=== PATIENT | male | born 1940 | race Caucasian/White ===

== ENCOUNTER 2018-02-23 14:42 | Inpatient (IN) | payer MEDICARE ==
[~2018-02-23] VITALS: Ht 180.3 cm; Wt 84.9 kg
[2018-02-23] MEDS ORDERED: SODIUM CHLORIDE FLUSH 10ML SYR IVF ONE (15:30)
[2018-02-23 15:44] LABS: BASOPHILS # (AUTO) 0.03 x10^3/uL (0-0.1); BASOPHILS % (AUTO) 0 % (0-1); EOSINOPHILS # (AUTO) 0.38 x10^3/uL (0-0.4); EOSINOPHILS % (AUTO) 4 % (1-7); LYMPHOCYTES # (AUTO) 1.34 x10^3/uL (1-3.4); LYMPHOCYTES % (AUTO) 15 % (22-44); MD NO; MEAN CORPUSCULAR HEMOGLOBIN 32.7 pg (27.5-34.5); MEAN CORPUSCULAR VOLUME 96.2 fL (81-97); MEAN PLATELET VOLUME 7.6 fL (7.4-10.4); MONOCYTES # (AUTO) 0.58 x10^3/uL (0.2-0.8); MONOCYTES % (AUTO) 7 % (2-9); NEUTROPHILS # (AUTO) 6.41 x10^3/uL (1.8-6.8); NEUTROPHILS % (AUTO) 74 % (42-75); PLATELET COUNT 317 x10^3/uL (130-400); RED BLOOD COUNT 4.46 x10^6/uL (4.38-5.82); RED CELL DISTRIBUTION WIDTH 13.4 % (9.4-14.8)
[2018-02-23 15:53] LABS: ANION GAP 4 mmol/L (5-15); CALCIUM 8.9 mg/dL (8.5-10.1); CHLORIDE 108 mmol/L (98-107); CREATININE 1.15 mg/dL (0.7-1.3)
[2018-02-23 16:59] LABS: INTERNATIONAL NORMALIZED RATIO 2.14 (0.93-1.1)
[2018-02-23 17:04] LABS: ALANINE AMINOTRANSFERASE 22 U/L (12-78)
[2018-02-23 17:07] LABS: ALKALINE PHOSPHATASE 91 U/L (45-117); BILIRUBIN,TOTAL 0.5 mg/dL (0.2-1.0); TOTAL PROTEIN 8.2 g/dL (6.4-8.2)
[2018-02-23] MEDS ORDERED: OMNIPAQUE 350 MG/ML, 100ML BOTTLE ONE (17:57)
--- NOTE | 2018-02-23 19:15 | NUR ---
report from bo assumed care of pt
--- NOTE | 2018-02-23 19:34 | NUR ---
ADMITTING MD AT BEDSIDE AWAITING ADMIT
[2018-02-23] MEDS ORDERED: ONDANSETRON 2MG/ML, 2ML IVPush PRN (20:00)
[2018-02-23] MEDS ORDERED: BISACODYL 10 MG SUPP PR PRN (20:00)
[2018-02-23] MEDS ORDERED: SODIUM CHLORIDE FLUSH 10ML SYR IVF PRN (20:00)
[2018-02-23] MEDS ORDERED: ACETAMINOPHEN 325 MG TABLET PO PRN (20:00)
--- NOTE | 2018-02-23 20:10 | NUR ---
report to tamie pt to floor with tech
[2018-02-23 20:40] VITALS: BP 122/56
[2018-02-23 23:00] VITALS: BP 122/56
[2018-02-23] MEDS: SODIUM CHLORIDE FLUSH 10ML SYR IVF SCH (23:00)
[2018-02-24 01:09] VITALS: BP 132/60
[2018-02-24] MEDS: HEPARIN 25,000 UNITS/500ML PMX 500 ML IV PRN (01:27)
[2018-02-24] MEDS ORDERED: ALBUTEROL SULFATE 2.5 MG/3 ML NPPB PRN (04:00)
[2018-02-24 05:48] LABS: BASOPHILS # (AUTO) 0.06 x10^3/uL (0-0.1); BASOPHILS % (AUTO) 1 % (0-1); EOSINOPHILS # (AUTO) 0.65 x10^3/uL (0-0.4); EOSINOPHILS % (AUTO) 8 % (1-7); LYMPHOCYTES % (AUTO) 14 % (22-44); MD NO; MEAN CORPUSCULAR HEMOGLOBIN 32.4 pg (27.5-34.5); MEAN CORPUSCULAR HGB CONC 33.6 g/dL (33.2-36.2); MEAN CORPUSCULAR VOLUME 96.5 fL (81-97); MEAN PLATELET VOLUME 7.8 fL (7.4-10.4); MONOCYTES # (AUTO) 0.85 x10^3/uL (0.2-0.8); MONOCYTES % (AUTO) 10 % (2-9); NEUTROPHILS # (AUTO) 5.65 x10^3/uL (1.8-6.8); NEUTROPHILS % (AUTO) 67 % (42-75); PLATELET COUNT 293 x10^3/uL (130-400); RED BLOOD COUNT 4.02 x10^6/uL (4.38-5.82); RED CELL DISTRIBUTION WIDTH 13.5 % (9.4-14.8)
[2018-02-24 05:55] LABS: INTERNATIONAL NORMALIZED RATIO 2.15 (0.93-1.1); PROTHROMBIN TIME 22.1 Seconds (9.6-11.5)
[2018-02-24 06:03] LABS: CHLORIDE 111 mmol/L (98-107)
[2018-02-24 06:13] LABS: ALANINE AMINOTRANSFERASE 22 U/L (12-78); ALBUMIN 3.2 g/dL (3.4-5.0); ALKALINE PHOSPHATASE 75 U/L (45-117); ANION GAP 5 mmol/L (5-15); BILIRUBIN,TOTAL 0.5 mg/dL (0.2-1.0); CALCIUM 8.2 mg/dL (8.5-10.1); CREATININE 1.16 mg/dL (0.7-1.3); TOTAL PROTEIN 6.9 g/dL (6.4-8.2)
[2018-02-24 07:43] VITALS: BP 126/61
[2018-02-24] MEDS: SENNA/DOCUSATE TABLET PO SCH (09:00)
[2018-02-24] MEDS: SODIUM CHLORIDE FLUSH 10ML SYR IVF SCH ×2 (09:00→21:00)
[2018-02-24] MEDS ORDERED: FLUT1DIS3 INH (09:49)
[2018-02-24] MEDS ORDERED: LEVO50TA5 PO (09:52)
[2018-02-24] MEDS ORDERED: WARF2.5T32 PO (09:52)
[2018-02-24] MEDS ORDERED: DILT180C9 PO (09:52)
[2018-02-24] MEDS ORDERED: AMIO200T42 PO (09:52)
[2018-02-24] MEDS ORDERED: DOXA8TAB63 PO (09:52)
[2018-02-24] MEDS ORDERED: UMEC62.5 PO (09:52)
[2018-02-24] MEDS ORDERED: ZOLP10TA PO (09:52)
[2018-02-24] MEDS: HEPARIN 5,000 UNITS/ML, 1ML IV PRN (10:02)
[2018-02-24 13:59] VITALS: BP 130/67
[2018-02-24] MEDS ORDERED: AMIODARONE 200 MG TABLET PO SCH (21:00)
[2018-02-24 21:08] VITALS: BP 156/77
[2018-02-24] MEDS: DILTIAZEM CD 180 MG CAP.ER.24H PO SCH ×2 (22:00→22:24)
[2018-02-24] MEDS: DOXAZOSIN 2MG TABLET PO SCH (22:23)
[2018-02-25] VITALS (7 sets, daily range): BP systolic 127–158; BP diastolic 57–83
[2018-02-25] MEDS: HEPARIN 5,000 UNITS/ML, 1ML IV PRN (00:28)
[2018-02-25] MEDS: HEPARIN 25,000 UNITS/500ML PMX 500 ML IV PRN (03:32)
[2018-02-25] MEDS: SODIUM CHLORIDE FLUSH 10ML SYR IVF SCH ×2 (08:04→21:00)
[2018-02-25] MEDS: SENNA/DOCUSATE TABLET PO SCH (08:14)
[2018-02-25] MEDS: DOXAZOSIN 2MG TABLET PO SCH ×2 (08:15→21:19)
[2018-02-25 09:09] LABS: INTERNATIONAL NORMALIZED RATIO 1.71 (0.93-1.1); PROTHROMBIN TIME 17.8 Seconds (9.6-11.5)
[2018-02-25] MEDS ORDERED: BUPIVACAINE/PF-EPI 0.5% 1:200K ONE (17:02)
[2018-02-25] MEDS ORDERED: FENTANYL PF 250 MCG/5ML ONE (17:14)
[2018-02-25] MEDS ORDERED: ROCURONIUM 10 MG/ML,10ML ONE (17:21)
[2018-02-25] MEDS ORDERED: CEFAZOLIN 1,000 MG ONE (17:21)
[2018-02-25] MEDS ORDERED: SUCCINYLCHOLINE 20 MG/ML, 10ML ONE (17:21)
[2018-02-25] MEDS ORDERED: EPHEDRINE 50 MG/ML, 1ML ONE (17:21)
[2018-02-25] MEDS ORDERED: PROPOFOL 10 MG/ML, 20ML ONE (17:21)
[2018-02-25] MEDS ORDERED: FENTANYL PF 100 MCG/2ML IV PRN (18:30)
[2018-02-25] MEDS ORDERED: PROMETHAZINE 25 MG/ML, 1ML IV PRN (18:30)
[2018-02-25] MEDS ORDERED: ACETAMINOPHEN 325 MG TABLET PO PRN (18:30)
[2018-02-25] MEDS ORDERED: DIAZEPAM 5 MG/ML, 2ML IVPush PRN (18:30)
[2018-02-25] MEDS ORDERED: hydrALAzine 20 MG/ML, 1ML IV PRN (18:30)
[2018-02-25] MEDS ORDERED: LABETALOL 5MG/ML, 20ML IV PRN (18:30)
[2018-02-25] MEDS ORDERED: ONDANSETRON 2MG/ML, 2ML IV PRN ×2 (18:30→23:45)
[2018-02-25] MEDS ORDERED: ONDANSETRON ODT 8 MG PO PRN (18:30)
[2018-02-25] MEDS ORDERED: MEPERIDINE/PF 25MG/0.5ML IVPush PRN (18:30)
[2018-02-25] MEDS ORDERED: HYDROmorphone 2 MG/ML, 1ML IVPush PRN (18:30)
[2018-02-25] MEDS ORDERED: OXYcodone 5 MG/5 ML ORAL.SOL UDC PO PRN (18:30)
[2018-02-25] MEDS ORDERED: HYDROmorphone PCA 30 MG/30 ML IV PRN ×2 (20:00→23:45)
[2018-02-25] MEDS: AMIODARONE 200 MG TABLET PO SCH (21:19)
[2018-02-25] MEDS: DILTIAZEM CD 180 MG CAP.ER.24H PO SCH (21:19)
[2018-02-25] MEDS: ZOLPIDEM 10MG TABLET PO PRN (22:04)
[2018-02-26] MEDS: ACETAMINOPHEN 500 MG TABLET PO SCH ×4 (01:03→18:28)
[2018-02-26 01:21] VITALS: BP 131/65
[2018-02-26] MEDS: D5%-0.45NACL+KCL 20MEQ 1,000 ML IV SCH ×2 (01:54→14:41)
[2018-02-26 04:39] LABS: BASOPHILS # (AUTO) 0.01 x10^3/uL (0-0.1); BASOPHILS % (AUTO) 0 % (0-1); EOSINOPHILS # (AUTO) 0.15 x10^3/uL (0-0.4); EOSINOPHILS % (AUTO) 1 % (1-7); LYMPHOCYTES # (AUTO) 0.61 x10^3/uL (1-3.4); LYMPHOCYTES % (AUTO) 6 % (22-44); MD NO; MEAN CORPUSCULAR HEMOGLOBIN 32.9 pg (27.5-34.5); MEAN CORPUSCULAR VOLUME 96.9 fL (81-97); MEAN PLATELET VOLUME 7.7 fL (7.4-10.4); MONOCYTES # (AUTO) 0.75 x10^3/uL (0.2-0.8); MONOCYTES % (AUTO) 7 % (2-9); NEUTROPHILS % (AUTO) 86 % (42-75); PLATELET COUNT 289 x10^3/uL (130-400); RED BLOOD COUNT 3.94 x10^6/uL (4.38-5.82); RED CELL DISTRIBUTION WIDTH 13.4 % (9.4-14.8)
[2018-02-26 04:45] LABS: ALBUMIN 3.1 g/dL (3.4-5.0); ANION GAP 7 mmol/L (5-15); CALCIUM 8.4 mg/dL (8.5-10.1); CHLORIDE 107 mmol/L (98-107); CREATININE 1.19 mg/dL (0.7-1.3)
[2018-02-26 07:27] VITALS: BP 107/64
[2018-02-26] MEDS: HEPARIN 5,000 UNITS/ML, 1ML SQ SCH ×3 (08:00→21:40)
[2018-02-26] MEDS: SENNA/DOCUSATE TABLET PO SCH (08:11)
[2018-02-26] MEDS: DOXAZOSIN 2MG TABLET PO SCH ×2 (08:12→21:00)
[2018-02-26] MEDS: POLYETHYLENE GLYCOL 17 GM PACKET PO PRN (14:41)
[2018-02-26 15:26] VITALS: BP 110/68
[2018-02-26 19:44] VITALS: BP 107/52
[2018-02-26] MEDS: DILTIAZEM CD 180 MG CAP.ER.24H PO SCH (21:00)
[2018-02-26] MEDS: AMIODARONE 200 MG TABLET PO SCH (21:41)
[2018-02-26] MEDS: ZOLPIDEM 10MG TABLET PO PRN (21:42)
[2018-02-27 01:07] VITALS: BP 119/60
[2018-02-27] MEDS: ACETAMINOPHEN 500 MG TABLET PO SCH ×4 (01:11→21:09)
[2018-02-27] MEDS: D5%-0.45NACL+KCL 20MEQ 1,000 ML IV SCH ×2 (03:34→17:54)
[2018-02-27 07:50] VITALS: BP 119/54
[2018-02-27] MEDS: SENNA/DOCUSATE TABLET PO SCH (08:15)
[2018-02-27] MEDS: POLYETHYLENE GLYCOL 17 GM PACKET PO PRN (08:16)
[2018-02-27] MEDS: HEPARIN 5,000 UNITS/ML, 1ML SQ SCH ×3 (08:16→23:43)
[2018-02-27] MEDS: DOXAZOSIN 2MG TABLET PO SCH ×2 (08:17→21:00)
[2018-02-27] MEDS ORDERED: OXYcodone/APAP 5/325MG TABLET PO PRN (10:00)
[2018-02-27 13:23] VITALS: BP 122/54
[2018-02-27] MEDS: OXYcodone IR 5MG TABLET PO PRN (19:30)
[2018-02-27 20:15] VITALS: BP 128/57
[2018-02-27] MEDS: AMIODARONE 200 MG TABLET PO SCH (21:10)
[2018-02-27] MEDS: ZOLPIDEM 10MG TABLET PO PRN (21:10)
[2018-02-27] MEDS: DILTIAZEM CD 180 MG CAP.ER.24H PO SCH (21:11)
[2018-02-28] MEDS: ACETAMINOPHEN 500 MG TABLET PO SCH ×2 (03:50→08:32)
[2018-02-28 03:58] VITALS: BP 134/65
[2018-02-28] MEDS: D5%-0.45NACL+KCL 20MEQ 1,000 ML IV SCH (06:31)
[2018-02-28] MEDS ORDERED: ASPI-650 PO (07:49)
[2018-02-28 07:56] VITALS: BP 128/65
[2018-02-28] MEDS: HEPARIN 5,000 UNITS/ML, 1ML SQ SCH (08:30)
[2018-02-28] MEDS: DOXAZOSIN 2MG TABLET PO SCH (08:31)
[2018-02-28] MEDS: SENNA/DOCUSATE TABLET PO SCH (08:31)
[2018-02-28] MEDS: OXYcodone IR 5MG TABLET PO PRN (08:36)
== END 2018-02-28 10:33 | disposition home or self-care (01) | DRG 163 ==
LOC: ED 20:14 → 3NE 21:49
PROVIDERS: ADMIT Internal Medicine; ATTEND Hospitalist
PROC: 0T9B70Z Drainage of Bladder with Drainage Device, Via Natural or Artificial Opening (ICD-10-PCS; 2018-02-23)
PROC: 30233N1 Transfusion of Nonautologous Red Blood Cells into Peripheral Vein, Percutaneous Approach (ICD-10-PCS; 2018-02-25)
PROC: 5A09357 Assistance with Respiratory Ventilation, Less than 24 Consecutive Hours, Continuous Positive Airway Pressure (ICD-10-PCS; 2018-02-25)
PROC: 0W9B40Z Drainage of Left Pleural Cavity with Drainage Device, Percutaneous Endoscopic Approach (ICD-10-PCS; 2018-02-25)
PROC: 0BNJ4ZZ Release Left Lower Lung Lobe, Percutaneous Endoscopic Approach (ICD-10-PCS; principal; 2018-02-25 14:00)
PROC: 5A09357 Assistance with Respiratory Ventilation, Less than 24 Consecutive Hours, Continuous Positive Airway Pressure (ICD-10-PCS; 2018-02-26)
PROC: 5A09357 Assistance with Respiratory Ventilation, Less than 24 Consecutive Hours, Continuous Positive Airway Pressure (ICD-10-PCS; 2018-02-27)
DX: J94.2 Hemothorax (principal); J96.21 Acute and chronic respiratory failure with hypoxia; N13.8 Other obstructive and reflux uropathy; D68.69 Other thrombophilia; J98.11 Atelectasis; J90 Pleural effusion, not elsewhere classified; N40.1 Benign prostatic hyperplasia with lower urinary tract symptoms; R33.8 Other retention of urine; H91.90 Unspecified hearing loss, unspecified ear; J98.2 Interstitial emphysema; K57.30 Diverticulosis of large intestine without perforation or abscess without bleeding; N32.0 Bladder-neck obstruction; S30.1XXA Contusion of abdominal wall, initial encounter; Z96.653 Presence of artificial knee joint, bilateral; I48.2 Chronic atrial fibrillation; J44.9 Chronic obstructive pulmonary disease, unspecified; R91.1 Solitary pulmonary nodule; T45.515A Adverse effect of anticoagulants, initial encounter; Y92.89 Other specified places as the place of occurrence of the external cause; Z79.01 Long term (current) use of anticoagulants; Z85.820 Personal history of malignant melanoma of skin; Z87.891 Personal history of nicotine dependence; Z90.49 Acquired absence of other specified parts of digestive tract; Z99.81 Dependence on supplemental oxygen; Z88.0 Allergy status to penicillin
CPT/HCPCS: 36415; 71045; 71260; 74177; 80048; 80053; 82040; 83605; 83735; 84100; 85025; 85520; 85610; 86850; 86900; 87040; 88305; 93005; 94640; 99285; C1729; G0378; J0690; J1170; J1644; J2704; J3010; J7613; Q9967; J0330; J3480; P9017